=== PATIENT | male | born 1940 | race Caucasian/White ===

== ENCOUNTER 2016-07-28 11:00 | Inpatient (IN) | payer MEDICARE, BC ==
[~2016-07-28] VITALS: Ht 182.9 cm; Wt 113.4 kg
--- NOTE | ~2016-07-28 | OR ---
PATIENT'S NAME: ELISABETH ASCENCIO [facility] AGE: 76 Y [address] ROOM: [address] [address] LOCATION: GPCU ADMIT DATE: 08/05/2016 OR/Procedure Report DISCHARGE DATE: FAMILY PHYSICIAN: Tommie Silverman MD ATTENDING PHYSICIAN: IRVING HYDE SURGEON: Irving Hyde MD SEMIAUTOMATIC STITCHER OPERATOR: DATE OF PROCEDURE: 08/05/2016 PREOPERATIVE DIAGNOSIS: Symptomatic right carotid artery stenosis. POSTOPERATIVE DIAGNOSIS: Symptomatic right carotid artery stenosis. PROCEDURE PERFORMED: Right carotid endarterectomy with bovine pericardial patch. COLOR PRINTER OPERATOR: DOREEN Sandy. ANESTHESIA: General. ESTIMATED BLOOD LOSS: 150 mL. OPERATIVE FINDINGS: High-grade right ICA stenosis with intraplaque hemorrhage as well as clot. The patient was neurologically intact. DESCRIPTION OF PROCEDURE: The patient was brought to the operating room, placed supine on the operative table, placed under general anesthesia, prepped and draped in a sterile manner. Preoperative time-out was performed. The patient had placement of arterial line as well as a Rojas catheter. The patient received preoperative antibiotics. We made a standard incision along the anterior border of the right sternocleidomastoid muscle, transected the platysma, dissected the soft areolar tissue along the anterior border and dissected out the internal jugular vein, dissected of the facial vein which was ligated and transected. We dissected out the common, the external, the internal as well as the superior thyroid. We gave 5000 units of heparin. We clamped on all 3 major vessels and placed a clip on the superior thyroid. We made arteriotomy with the #11 blade on the common and extended onto the internal using Mosquera scissors. We then passed a 5 x 3 Sundt shunt. Flow was confirmed with the use of Doppler. We removed the plaque in its entirety. Then, we performed a bovine pericardial patch using 2 running 6-0 [place] sutures. Before completing anastomosis, we clamped to remove the shunt. There was backbleeding from the internal as well as flushing from the common. We completed anastomosis. We removed the clamp from the external as well as the clip from the superior thyroid as well as the clamp from the common. We waited 10 heartbeats and removed the clamp from the internal. Flow was PATIENT'S NAME: ELISABEHT ASCENCIO [facility] AGE: 76 Y [address] ROOM: [place] [address] [facility] ADMIT DATE: 08/05/2016 OR/Procedure Report DISCHARGE DATE: FAMILY PHYSICIAN: Tommie Silverman MD ATTENDING PHYSICIAN: IRVING HYDE confirmed in all vessels with use of Doppler. Heparin was reversed with protamine. Deep layers were treated with thrombin for hemostasis. We closed the deep layers with 2-0 and 3-0 Vicryl. Skin was closed with running 4-0 Monocryl. The patient tolerated the procedure well and transferred to the recovery room after awakening in the operating room and neurologically intact. IRVING HYDE MD FKM/modl /[id number] d: 08/06/16 0005 t: 08/06/16 1229, OPERATIVE SUMMARY
--- NOTE | ~2016-07-28 | CON ---
PATIENT'S NAME: ELISABETH ASCENCIO [facility] AGE: 76 Y [address] ROOM: [address] [address] LOCATION: GPCU ADMIT DATE: 08/05/2016 Consultation DISCHARGE DATE: FAMILY PHYSICIAN: Tommie Silverman MD ATTENDING PHYSICIAN: CHRISTOS HYDE REFERRING PHYSICIAN: Reynaldo Wilcox MD CHIEF COMPLAINT/REASON FOR CONSULTATION: Medical management in the setting of carotid endarterectomy. HISTORY OF PRESENTING ILLNESS: This 76-year-old white male with previous history of diabetes mellitus type 2, hypertension, and ulcerative colitis, was brought to [facility] today for elective carotid endarterectomy. This was performed under the direction of Dr. Hyde. The procedure was uncomplicated. He has subsequently been transferred to the floor. I have been asked to assist with general medical management. He complains of pain over the right side of his head. It is fairly constant in nature, and he rates it at 7 to 8 out of 10. He got some [place] earlier, which made him a little nauseated. He complains that has not helped very much. He denies guy headache pain, just tenderness over the right side of his head. He denies blurred vision or scotomata. No chest pain and no significant shortness of breath. He does admit that his oxygen "goes down" when he sleeps. He typically uses CPAP at bedtime. He has been otherwise well recently. He eats and drinks normally. He denies any difficulties with chewing or swallowing. No abdominal pain. He stools and voids normally. No numbness, tingling, or weakness in his extremities or any other associated physical or constitutional complaints. ALLERGIES: CEPHALEXIN, SULFA, AND LISINOPRIL. ILLNESSES: 1. Diabetes mellitus type 2. 2. Ulcerative colitis with chronic steroid dependence. 3. Obstructive sleep apnea. 4. Gastroesophageal reflux disease. 5. Osteoarthritis, generalized. 6. Hypogonadism. CURRENT MEDICATIONS: 1. Testosterone 400 mg IM q.30 days. 2. Lovenox 40 mg subcu daily. 3. Dorzolamide and timolol ophthalmic drops 1 drop each eye b.i.d. PATIENT'S NAME: ELISABETH ASCENCIO [facility] AGE: 76 Y [address] ROOM: [id number] [place], [place] [address] [facility] ADMIT DATE: 08/05/2016 Consultation DISCHARGE DATE: FAMILY PHYSICIAN: Tommie Silverman MD ATTENDING PHYSICIAN: CHRISTOS HYDE 4. Dyazide 1 tab daily. 5. Rosuvastatin 5 mg p.o. daily. 6. Trospium 20 mg p.o. b.i.d. 7. Prednisolone ophthalmic drops q.i.d. p.r.n. 8. Protonix 40 mg q.Tuesday, Tuesday, and Tuesday. 9. Losartan 25 mg p.o. daily. 10. Glimepiride 2 mg p.o. daily. 11. Vitamin D3 5000 units p.o. daily. 12. Brimonidine ophthalmic drops 1 drop each eye b.i.d. 13. Atenolol 25 mg p.o. daily. 14. Aspirin 81 mg p.o. daily. 15. Mesalamine 800 mg p.o. 5 times a day. 16. Benadryl 25 mg p.o. q.h.s. p.r.n. 17. Acetaminophen 650 mg p.o. q.4 hours p.r.n. 18. [place] 5/325 one to two tabs p.o. q.4 hours p.r.n. pain. 19. Morphine 2 mg IV q.5 minutes p.r.n. pain. 20. Nitroglycerin p.r.n. 21. Infliximab 100 mg IV monthly. 22. Clindamycin 450 mg IV q.8 hours x3 bags. FAMILY HISTORY: Significant for coronary artery disease in his sister. SOCIAL HISTORY: He is and lives in [place]. He has 4 grown children. He has a distant past history of smoking cigarettes, smoked a pipe for 20 years, but he has currently quit. He drinks alcohol occasionally. REVIEW OF SYSTEMS: As per HPI. All other organ systems were reviewed and are negative. OBJECTIVE: VITAL SIGNS: Temperature 97.8, pulse 54, respirations 20, blood pressure 111/59, O2 saturation 93% on 4 L. GENERAL: He is disheveled, in moderate distress secondary to right-sided neck and head pain. SKIN: Supple, pink, warm, and dry. The wound dressing overlying the right neck is clean and intact. HEENT: Otherwise, normocephalic. Sclerae nonicteric. Pupils equal and round, 2-3 mm, slow to react to light. Extraocular movements appear intact. Nasal turbinates normal in appearance. Oropharynx clear. Mucous membranes are pink and moist. NECK: Otherwise supple. Plethoric on the right, but no obvious hematoma, no neck lesions. CHEST: Wall is symmetrical. PATIENT'S NAME: ELISABETH ASCENCIO [facility] AGE: 76 Y [address] ROOM: [id number] [place], [place] [address] LOCATION: GPCU ADMIT DATE: 08/05/2016 Consultation DISCHARGE DATE: FAMILY PHYSICIAN: Tommie Silverman MD ATTENDING PHYSICIAN: CHRISTOS HYDE HEART: Bradycardic, regular. There is a grade 1 to 2 out of 6 systolic ejection murmur. LUNGS: Diminished at the bases with long expiratory phase. No guy wheezes. No areas of consolidation. ABDOMEN: Soft and obese. Nontender. Bowel sounds present. No masses or hepatosplenomegaly. and RECTAL: Not done. EXTREMITIES: Display no clubbing, cyanosis or edema. NEUROLOGICAL: Cranial nerves 2 through 12 appear grossly intact. Speech is a little dysarthric. Sensation appears intact. Strength is 4 to 5 out of 5 bilaterally in upper and lower extremities. DTRs are 0 to 1+ symmetrical. Gait is not observed. LABORATORY AND X-RAY DATA: Chemistries revealed a BUN and creatinine of 17 and 1.3 respectively, sodium and potassium of 144 and 4.3, chloride and CO2 are 109 and 29, calcium is 8.4, glucose 125. ASSESSMENT AND PLAN: 1. Diabetes mellitus type 2. Historically, well controlled. We will manage with Accu-Cheks and sliding scale insulin while he is inpatient. Hold the oral hypoglycemics. We will try to advance him carefully to a diabetic diet as he can tolerate. 2. Obstructive sleep apnea. He is high risk for acute on chronic hypoxic respiratory failure given his obesity and postoperative status. We will manage opioid therapy carefully. We will use oxycodone for breakthrough pain and try to avoid IV opioid analgesia. Encourage good pulmonary hygiene. Utilize the CPAP machine per home settings. 3. Essential hypertension. Adequately controlled. We will monitor the trend and make adjustments if necessary. 4. Hyperlipidemia. Plan to continue with statin therapy. 5. Ulcerative colitis with chronic steroid dependence. Currently, stable and clinically well controlled. Continue his home medication regimen and continue PPI therapy. 6. Obesity. Work on some long-term strategies for weight loss including balanced dietary intake, increased exercise, etc.. 7. Deep venous thrombosis prophylaxis. Continue Lovenox as already ordered by Dr. Hyde. MD VANI HUBER/kimmy PATIENT'S NAME: ELISABETH ASCENCIO [facility] AGE: 76 Y [address] ROOM: [place] [address] [facility] ADMIT DATE: 08/05/2016 Consultation DISCHARGE DATE: FAMILY PHYSICIAN: Tommie Silverman MD ATTENDING PHYSICIAN: CHRISTOS HYDE /[id number] d: 08/05/162119 t: 08/06/16 0919, CONSULTATION REPORT
[~2016-07-28 11:00] MED LIST: ALPHAGAN 05 ML/1 BOT OPHTH; AMARYL2 MG PO; ASACOL HD800 MG PO; ASPIRIN EC81 MG PO; ATENOLOL25 MG PO; COSOPT DROPS 1010 ML OPHTH; COZAAR25 MG PO; CPAP INH; DEPO TESTOS200 MG/ML IM; DITROPAN XL15 MG PO; PRED FORTE 1%5 ML OPHTH; PROTONIX40 MG PO; ROSUVASTATIN CAL5 MG PO; TRIAMTERENE-HC1 EAC1 PO; VITAMIN D35000 UNI1 PO
[2016-08-05] MEDS ORDERED: REMICADE100 MG IV (06:16)
[2016-08-05] MEDS ORDERED: XALATAN2.5 ML OPHTH (13:27)
[2016-08-05] MEDS ORDERED: NORCO 5-325 TA1 EACH PO (13:28)
[2016-08-05 13:38] LABS: ANION GAP 10.3 (10.0-19.0); CALCIUM 8.4 mg/dL (8.5-10.5); CREATININE 1.3 mg/dL (0.6-1.3)
[2016-08-05 13:43] LABS: POTASSIUM 4.3 mMol/L (3.7-5.1)
--- NOTE | 2016-08-05 19:22 | NUR ---
PATIENT FROM PACU AT 12:30. FAMILY AT BEDSIDE. VSS, 4L NC. HOME CPAP W/ 2 L BLED IN. 2 NORCO X2 FOR PAIN, ROXICODONE GIVEN X1 FOR BREAKTHREW PAIN W/ RELIEF.
[2016-08-06 03:51] LABS: BASOPHIL % 0.1 %; EOSINOPHIL % 0.1 %; HEMATOCRIT 49.4 % (37.0-53.0); HEMOGLOBIN 15.9 g/dL (11.0-16.0); IMMATURE GRANULOCYTE # 0.1 K/uL (0.0-0.3); IMMATURE GRANULOCYTE % 0.5 %; LYMPHOCYTE # 0.8 K/uL (0.8-4.0); LYMPHOCYTE % 5.8 %; MCH 32.1 pg (27.0-34.0); MCHC 32.2 gm/dL (32.0-36.5); MCV 99.6 fl (83.0-98.0); MONOCYTE # 1.5 K/uL (0.0-1.0); MONOCYTE % 10.4 %; MPV 9.8 fl (9.4-12.4); NEUTROPHIL # (ANC) 11.6 K/uL (1.4-9.0); NEUTROPHIL % 83.1 %; NRBC % 0 /100WBC (0-0.00); PLATELET COUNT 125 K/uL (150-450); RBC 4.96 M/uL (3.50-5.50); RDW-CV 14.8 % (11.9-14.6); WBC 13.9 K/uL (4.0-11.0)
[2016-08-06 04:11] LABS: ALBUMIN 3.3 gm/dL (3.5-5.0); ANION GAP 14.2 (10.0-19.0); CALCIUM 7.6 mg/dL (8.5-10.5); CREATININE 1.3 mg/dL (0.6-1.3); PHOSPHORUS 3.6 mg/dL (2.5-4.9); POTASSIUM 4.2 mMol/L (3.7-5.1)
--- NOTE | 2016-08-06 04:11 | NUR ---
Pt had a rough night. Started to vomit every other hourish starting at 2230ish. given zofran, sprite, reglan, and more zofran. Pt vomitted roughly 1500. had 575 out of huizar-removed at 0400. Artline d/c'd at 0400. R cardotid site slightly puffy. firmness that has been present all shift with no changes. shadow drainage marked at 2000 with no changes. pt states no neuro changes and no changes to throat/vocal cords. SB 45-60's. SBP 110-150's. afebrile, con't on 3L nc. wears cpap normally at night but didn't d/t unsure when he was going to vomit. has not been oob yet. bsc at bedside d/t ulcerative colitis. Midline MAC SL. PIV to RFA SL. The last time pt vomitted ~330 he became very short of breath and stated he had a lot of pressure in his chest. Post vomitting he stated it must have been an air bubble trapped and he felt much better. Pt was given norco at shift change yesterday and given roxycodone x1 for me at HS. Pt wondering if his n/v is from the pain meds ontop of "empty" stomach. Plan: ? d/c. ? stay one more night d/t all the nausea
--- NOTE | 2016-08-06 16:23 | NUR ---
PATIENT A/OX3, VSS ON ROOM AIR. PT. DID HAVE 100mL EMESIS THIS AM, NO COMPLAINTS OF N/V REST OF SHIFT. DID EAT BREAKFAST & LUNCH WITHOUT ANY PROBLEMS. DR. HERNANDEZ REMOVED DRESSING TO RIGHT NECK, INCISION SUTURED, NO DRAINAGE, SWELLING NOTED TO SITE, NEURO ASSESSMENT WNL. PT. WALKED IN HALLS TODAY X1. PT. HAS HAD LOTS OF GAS MOVEMENT WHEN UP AND AROUND. VOIDS FINE. NO COMPLAINTS OF PAIN. DISMISSAL INSTRUCTIONS, MEDICATIONS, POST CEA INSTRUCTIONS GONE OVER WITH PATIENT AND , NO FURTHER QUESTIONS AT THIS TIME. IV'S REMOVED WITHOUT ANY PROBLEMS. ALL BELONGINGS SENT HOME WITH PATIENT.
== END 2016-08-06 16:05 | disposition disaster alternative care site (69) | DRG 38 ==
LOC: GPCU 08-05 05:20
PROVIDERS: Family Medicine; ADMIT Surgery Vascular Surgery
PROC: 03HY33Z Insertion of Infusion Device into Upper Artery, Percutaneous Approach (ICD-10-PCS; principal; 2016-08-05)
PROC: 03CK0ZZ Extirpation of Matter from Right Internal Carotid Artery, Open Approach (ICD-10-PCS; principal; 2016-08-05)
PROC: 03UK0KZ Supplement Right Internal Carotid Artery with Nonautologous Tissue Substitute, Open Approach (ICD-10-PCS; principal; 2016-08-05)
DX: I65.21 Occlusion and stenosis of right carotid artery (principal); K51.90 Ulcerative colitis, unspecified, without complications; J96.11 Chronic respiratory failure with hypoxia; E11.22 Type 2 diabetes mellitus with diabetic chronic kidney disease; E78.5 Hyperlipidemia, unspecified; G47.33 Obstructive sleep apnea (adult) (pediatric); E66.9 Obesity, unspecified; Z68.33 Body mass index [BMI] 33.0-33.9, adult; F17.210 Nicotine dependence, cigarettes, uncomplicated; I12.9 Hypertensive chronic kidney disease with stage 1 through stage 4 chronic kidney disease, or unspecified chronic kidney disease; N18.9 Chronic kidney disease, unspecified; M19.90 Unspecified osteoarthritis, unspecified site; Z85.828 Personal history of other malignant neoplasm of skin; I25.10 Atherosclerotic heart disease of native coronary artery without angina pectoris; Z95.5 Presence of coronary angioplasty implant and graft; Z79.84 Long term (current) use of oral hypoglycemic drugs; Z79.52 Long term (current) use of systemic steroids; J44.9 Chronic obstructive pulmonary disease, unspecified; K21.9 Gastro-esophageal reflux disease without esophagitis; I25.2 Old myocardial infarction; I69.398 Other sequelae of cerebral infarction; H54.41 Blindness, right eye, normal vision left eye
CPT/HCPCS: A9270; C1751; J0690; J1100; J1644; J1650; J2405; J2720; J2765; J3010; J7030; J7050